=== PATIENT | female | born 1990 | race African-American/Black ===

== ENCOUNTER 2019-01-22 16:54 | Emergency (ER) | payer OTHER ==
--- NOTE | 2019-01-22 17:11 | PDOC ---
Rapid Medical Evaluation Chief Complaint: Pain Time Seen by Provider: 01/22/19 17:09 Medical Evaluation: Allergies Allergy/AdvReac Type Severity Reaction Status Date / Time ibuprofen Allergy Severe Verified 07/21/13 23:17 01/22/19 17:10 I did a brief in person evaluation on this patient. CC: abdominal pain HPI: Pt has a hx of PCOX and has lower abd pain. LMP unknown. Pt has no hx of abd surgeries. PE: Skin: Clear Lungs: Clear Heart:RRR Abd: soft, non tender MS: Moves all extremities without difficulty Neuro: alert Psych: appropriate affect. I have ordered: abd protocol Pt will proceed to main ED for further evaluation. Discharge Disposition - Diagnosis Abdominal pain Qualifiers: Abdominal location: lower abdomen, unspecified Qualified Code(s): R10.30 - Lower abdominal pain, unspecified - Referrals - Patient Instructions - Post Discharge Activity
[2019-01-22 17:13] VITALS: BMI 29.2
[2019-01-22 18:06] LABS: BASO % 0.2 % (0-2.0); EOS % 1.6 % (0-4.5); HEMATOCRIT 42.3 % (32.4-45.2); HEMOGLOBIN 14.1 GM/dL (10.7-15.3); LYMPH % 36.8 % (8-40); MCHC 33.4 g/dl (32.0-36.0); MEAN CELL VOLUME 89.7 fl (80-96); MEAN PLT VOLUME 8.5 fl (7.5-11.1); MONO % 6.6 % (3.8-10.2); NEUT % 54.8 % (42.8-82.8); PLATELET COUNT 298 K/MM3 (134-434); RBC 4.71 M/mm3 (3.60-5.2); RDW 13.5 % (11.6-15.6); WHITE BLOOD COUNT 5.6 K/mm3 (4.0-10.0)
[2019-01-22 18:32] LABS: ALBUMIN 2.8 g/dl (3.4-5.0); ALK PHOS 50 U/L (45-117); ANION GAP 6 MMOL/L (8-16); BILIRUBIN,TOTAL < 0.1 mg/dL (0.2-1); BLOOD UREA NITROGEN 15 mg/dL (7-18); CHLORIDE 107 mmol/L (98-107); CO2 25 mmol/L (21-32); CREATININE 0.9 mg/dL (0.55-1.3); GLUCOSE,RANDOM 94 mg/dL (74-106); LIPASE 196 U/L (73-393); POTASSIUM 4.6 mmol/L (3.5-5.1); SGOT/AST 9 U/L (15-37); SGPT/ALT 16 U/L (13-61); SODIUM 138 mmol/L (136-145); TOT PROT 7.1 g/dl (6.4-8.2)
[2019-01-22 18:33] LABS: EPI CELLS 2.4 /HPF (0-5/HPF); URINE APPEARANCE CLEAR; URINE BACTERIA 80.9 /hpf (NEGATIVE); URINE BILIRUBIN NEGATIVE (NEGATIVE); URINE CASTS 2 /lpf (0-8); URINE COLOR YELLOW; URINE GLUCOSE (UA) NEGATIVE (NEGATIVE); URINE KETONE NEGATIVE (NEGATIVE); URINE LEUK ESTERASE NEGATIVE (NEGATIVE); URINE NITRITE NEGATIVE (NEGATIVE); URINE PROTEIN 3+ (NEGATIVE); URINE RBC 1 /hpf (0-4); URINE UROBILINOGEN 0.2 mg/dL (0.2-1.0); URINE WBC 4 /hpf (0-5)
--- NOTE | 2019-01-22 20:03 | PDOC ---
History of Present Illness - General Chief Complaint: Pain Stated Complaint: PELVIC PAIN Time Seen by Provider: 01/22/19 17:09 History Source: Patient - History of Present Illness Initial Comments: 01/22/19 19:57 28 year old female with history of PCOS c/o b/l pelvic painx 2 days. denies vaginal bleeding, discharge. denies no new partner or exposure to STI. denies urinary symptoms. 01/22/19 20:00 Past History - Past Medical History Allergies/Adverse Reactions: Allergies Allergy/AdvReac Type Severity Reaction Status Date / Time ibuprofen Allergy Severe Verified 07/21/13 23:17 Home Medications: Ambulatory Orders Norethindrone-E.estradiol-Iron [Lo Loestrin Fe 1-10 Tablet] 1 each PO DAILY Albuterol Sulfate Inhaler - [Ventolin HFA Inhaler -] 1 - 2 inh IH Q4H #1 inhaler 07/22/13 traMADol HCL [Ultram -] 50 mg PO BID PRN #7 tablet MDD 2 01/22/19 Asthma: Yes (MILD, NEVER ON MEDS) COPD: No - Immunization History Immunization Up to Date: No - Suicide/Smoking/Psychosocial Hx Smoking Status: No Smoking History: Never smoked Have you smoked in the past 12 months: No Number of Cigarettes Smoked Daily: 0 Information on smoking cessation initiated: No Hx Alcohol Use: No Drug/Substance Use Hx: No Review of Systems - Review of Systems Able to Perform ROS?: Yes Is the patient limited Turkish proficient: No Constitutional: No: Symptoms Reported, See HPI, Chills, Diaphoresis, Fever, Loss of Appetite, Malaise, Night Sweats, Weakness, Weight Stable, Unintentional Wgt. Loss, Unexplained wgt Loss, Other ABD/GI: No: Symptoms Reported, See HPI, Abdominal Distended, Abd. Pain w/ defecation, Blood Streaked Bowels, Constipated, Diarrhea, Difficulty Swallowing , Nausea, Poor Appetite, Poor Fluid Intake, Rectal Bleeding, Vomiting, Indigestion, Abdominal cramping, Tarry Stools, Other : Yes: Other (pelvic pain). No: Symptoms Reported, See HPI, Burning, Dysuria , Discharge, Frequency, Flank Pain, Hematuria, Incontinence, Pain, Urgency, Testicular Mass, Testicular Swelling, Lesions, Testicular Pain *Physical Exam - Vital Signs Last Vital Signs Temp Pulse Resp BP Pulse Ox 98.4 F 98 H 18 130/92 98 01/22/19 17:11 01/22/19 17:11 01/22/19 17:11 01/22/19 17:11 01/22/19 17:11 - Physical Exam General Appearance: Yes: Appropriately Dressed Respiratory/Chest: positive: Lungs Clear, Normal Breath Sounds Cardiovascular: positive: Regular Rhythm, Regular Rate Female Pelvic Exam: positive: normal external exam, cervical os closed, adnexal tenderness (b/l), other (white vaginal discharge) Gastrointestinal/Abdominal: positive: Normal Bowel Sounds, Soft. negative: Tender Extremity: positive: Normal Capillary Refill, Normal Inspection, Normal Range of Motion Integumentary: positive: Normal Color, Dry, Warm ED Treatment Course - LABORATORY CBC & Chemistry Diagram: 01/22/19 17:48 01/22/19 17:48 - ADDITIONAL ORDERS Additional order review: Laboratory Results 01/22/19 01/22/19 01/22/19 17:48 17:40 17:40 Sodium 138 Potassium 4.6 Chloride 107 Carbon Dioxide 25 Anion Gap 6 L BUN 15 Creatinine 0.9 Creat Clearance w eGFR 74.03 Random Glucose 94 Calcium 9.0 Total Bilirubin < 0.1 L AST 9 L ALT 16 Alkaline Phosphatase 50 Total Protein 7.1 Albumin 2.8 L Lipase 196 Urine Color Yellow Urine Appearance Clear Urine pH 7.0 Ur Specific [place] 1.015 Urine Protein 3+ H Urine Glucose (UA) Negative Urine Ketones Negative Urine Blood Negative Urine Nitrite Negative Urine Bilirubin Negative Urine Urobilinogen 0.2 Ur Leukocyte Esterase Negative Urine WBC (Auto) 4 Urine RBC (Auto) 1 Urine Casts (Auto) 2 U Epithel Cells (Auto) 2.4 Urine Bacteria (Auto) 80.9 Urine HCG, Qual Negative 01/22/19 17:48 RBC 4.71 MCV 89.7 MCHC 33.4 RDW 13.5 MPV 8.5 Neutrophils % 54.8 Lymphocytes % 36.8 D Monocytes % 6.6 Eosinophils % 1.6 Basophils % 0.2 - RADIOLOGY Radiology Studies Ordered: Category Date Time Status TRANSVAGINAL ULTRASOUND US [US] Stat Ultrasound 01/22/19 19:57 Ordered Progress Note - Progress Note Progress Note: A: Pelvic Pain P: labs UA TVUS *DC/Admit/Observation/Transfer Diagnosis at time of Disposition: Abdominal pain Qualifiers: Abdominal location: lower abdomen, unspecified Qualified Code(s): R10.30 - Lower abdominal pain, unspecified - Discharge Dispostion Disposition: HOME Condition at time of disposition: Stable - Prescriptions Prescriptions: traMADol HCL [Ultram -] 50 mg PO BID PRN #7 tablet MDD 2 PRN Reason: Pain - Referrals Referrals: Sofia Fofana MD [Primary Care Provider] - Call tomorrow - Patient Instructions Printed Discharge Instructions: DI for Pelvic Pain Additional Instructions: please follow up with your doctor as soon as possible. you may take tylenol every 6 hours as needed for pain apply warm / heat pack to the area follow up with a gas plumber - Post Discharge Activity Forms/Work/School Notes: Back to Work
--- NOTE | 2019-01-22 20:04 | PDOC ---
*Physical Exam - Vital Signs Last Vital Signs Temp Pulse Resp BP Pulse Ox 98.4 F 98 H 18 130/92 98 01/22/19 17:11 01/22/19 17:11 01/22/19 17:11 01/22/19 17:11 01/22/19 17:11 ED Treatment Course - LABORATORY CBC & Chemistry Diagram: 01/22/19 17:48 01/22/19 17:48 - ADDITIONAL ORDERS Additional order review: Laboratory Results 01/22/19 01/22/19 01/22/19 17:48 17:40 17:40 Sodium 138 Potassium 4.6 Chloride 107 Carbon Dioxide 25 Anion Gap 6 L BUN 15 Creatinine 0.9 Creat Clearance w eGFR 74.03 Random Glucose 94 Calcium 9.0 Total Bilirubin < 0.1 L AST 9 L ALT 16 Alkaline Phosphatase 50 Total Protein 7.1 Albumin 2.8 L Lipase 196 Urine Color Yellow Urine Appearance Clear Urine pH 7.0 Ur Specific [place] 1.015 Urine Protein 3+ H Urine Glucose (UA) Negative Urine Ketones Negative Urine Blood Negative Urine Nitrite Negative Urine Bilirubin Negative Urine Urobilinogen 0.2 Ur Leukocyte Esterase Negative Urine WBC (Auto) 4 Urine RBC (Auto) 1 Urine Casts (Auto) 2 U Epithel Cells (Auto) 2.4 Urine Bacteria (Auto) 80.9 Urine HCG, Qual Negative 01/22/19 17:48 RBC 4.71 MCV 89.7 MCHC 33.4 RDW 13.5 MPV 8.5 Neutrophils % 54.8 Lymphocytes % 36.8 D Monocytes % 6.6 Eosinophils % 1.6 Basophils % 0.2 Medical Decision Making - Medical Decision Making 01/22/19 20:04 Patient seen by the advanced practice provider under my direct supervision. Ancillary testing reviewed as necessary. I agree with plan as outlined by the advanced practice provider. *DC/Admit/Observation/Transfer Diagnosis at time of Disposition: Abdominal pain Qualifiers: Abdominal location: lower abdomen, unspecified Qualified Code(s): R10.30 - Lower abdominal pain, unspecified - Discharge Dispostion Disposition: HOME Condition at time of disposition: Stable - Prescriptions Prescriptions: traMADol HCL [Ultram -] 50 mg PO BID PRN #7 tablet MDD 2 PRN Reason: Pain - Referrals Referrals: Sofia Fofana MD [Primary Care Provider] - Call tomorrow - Patient Instructions Printed Discharge Instructions: DI for Pelvic Pain Additional Instructions: please follow up with your doctor as soon as possible. you may take tylenol every 6 hours as needed for pain apply warm / heat pack to the area follow up with a manager room - Post Discharge Activity Forms/Work/School Notes: Back to Work
[2019-01-22 22:23] VITALS: BP 122/85; PULSE 92; TEMP 98.1
== END 2019-01-22 21:55 | disposition home or self-care (01) ==
LOC: JER 16:54
DX: R10.2 Pelvic and perineal pain (principal); E28.2 Polycystic ovarian syndrome
CPT/HCPCS: 36415; 76830-TC; 80053; 81003; 83690; 84703; 85025; 99283-25

== ENCOUNTER 2019-10-27 21:18 | Emergency (ER) | payer OTHER ==
[2019-10-27 21:37] VITALS: BMI 31.2
[2019-10-27] MEDS ORDERED: predniSONE 20 MG TABLET (UD) PO ONE (22:32)
[2019-10-27] MEDS ORDERED: ACETAMINOPHEN 325 MG TABLET (FP) PO ONE (22:32)
[2019-10-27] MEDS ORDERED: predniSONE 20 MG TABLET (UD) ONE (22:39)
[2019-10-27] MEDS ORDERED: ALBUTEROL SO4 2.5/IPRATROPIUM 0.5 INH SOL 3 ML VIAL.NEB. NEB ONE (22:39)
[2019-10-27] MEDS ORDERED: ACETAMINOPHEN 325 MG TABLET (FP) ONE (22:39)
[2019-10-27] MEDS: ALBUTEROL SO4 2.5/IPRATROPIUM 0.5 INH SOL 3 ML VIAL.NEB. NEB SCH ×3 (22:40→23:03)
--- NOTE | 2019-10-27 23:02 | PDOC ---
History of Present Illness - General Chief Complaint: Cold Symptoms Stated Complaint: FLU SYX Time Seen by Provider: 10/27/19 22:01 History Source: Patient - History of Present Illness Timing/Duration: reports: yesterday Associated Symptoms: reports: cough, fever/chills Past History - Past Medical History Allergies/Adverse Reactions: Allergies Allergy/AdvReac Type Severity Reaction Status Date / Time ibuprofen Allergy Severe Verified 07/21/13 23:17 NSAIDS (Non-Steroidal Allergy Verified 10/27/19 21:33 Anti-Inflamma Home Medications: Ambulatory Orders Norethindrone-E.estradiol-Iron [Lo Loestrin Fe 1-10 Tablet] 1 each PO DAILY Albuterol Sulfate Inhaler - [Ventolin HFA Inhaler -] 1 - 2 inh IH Q4H #1 inhaler 07/22/13 traMADol HCL [Ultram -] 50 mg PO BID PRN #7 tablet MDD 2 01/22/19 Oseltamivir Phosphate [Tamiflu] 75 mg PO BID #10 capsule 10/27/19 predniSONE [Deltasone -] 40 mg PO DAILY #8 tablet 10/27/19 Asthma: Yes (MILD, NEVER ON MEDS) COPD: No - Immunization History Immunization Up to Date: No - Psycho Social/Smoking Cessation Hx Smoking Status: No Smoking History: Never smoked Have you smoked in the past 12 months: No Number of Cigarettes Smoked Daily: 0 Hx Alcohol Use: Yes ("occasional") Drug/Substance Use Hx: No Review of Systems - Review of Systems Constitutional: Yes: Chills, Fever, Malaise Respiratory: Yes: Cough, Shortness of Breath, Wheezing *Physical Exam - Vital Signs Last Vital Signs Temp Pulse Resp BP Pulse Ox 102.8 F H 125 H 20 128/77 98 10/27/19 21:33 10/27/19 21:33 10/27/19 21:33 10/27/19 21:33 10/27/19 21:33 - Physical Exam General Appearance: Yes: Appropriately Dressed, Mild Distress HEENT: positive: Normal ENT Inspection, Normal Voice, TMs Normal, Pharynx Normal. negative: Scleral Icterus (R), Scleral Icterus (L) Neck: positive: Supple Respiratory/Chest: positive: Lungs Clear, Normal Breath Sounds. negative: Respiratory Distress, Wheezing Cardiovascular: positive: S1, S2, Tachycardia Integumentary: positive: Dry, Warm Neurologic: positive: Fully Oriented, Alert, Normal Mood/Affect ED Treatment Course - Medications Given in the ED: ED Medications Discontinued Medications Generic Name Dose Route Start Last Admin Trade Name Landy PRN Reason Stop Dose Admin Acetaminophen 650 mg 10/27/19 22:32 10/27/19 22:40 Tylenol - PO 10/27/19 22:33 650 mg ONCE ONE Administration Prednisone 60 mg 10/27/19 22:32 10/27/19 22:40 Deltasone - PO 10/27/19 22:33 60 mg ONCE ONE Administration Medical Decision Making - Medical Decision Making 10/27/19 22:45 28-year-old female history of asthma, no intubations or admissions here with body aches with fever of 102. States at some point she began coughing with shortness of breath and wheezing, consistent with her asthma. Has been using a rescue inhaler with no improvement. see exam Influenza Rpt vitals improved w/ meds -dc w/ tamiflu and supportive treatment -Contact precautions given Asthma exacerbation -Improved with nebs -DC with Pred burst Discharge - Discharge Information Problems reviewed: Yes Clinical Impression/Diagnosis: Influenza A Asthma exacerbation Qualifiers: Asthma severity: mild Asthma persistence: unspecified Qualified Code(s): J45.901 - Unspecified asthma with (acute) exacerbation Condition: Improved Disposition: HOME - Additional Discharge Information Prescriptions: Oseltamivir Phosphate [Tamiflu] 75 mg PO BID #10 capsule predniSONE [Deltasone -] 40 mg PO DAILY #8 tablet - Follow up/Referral Referrals: Sofia Fofana MD [Primary Care Provider] - - Patient Discharge Instructions Patient Printed Discharge Instructions: Influenza Additional Instructions: Continue taking prednisone as directed for your asthma You have the flu. Take Tamiflu as directed and take Tylenol every 6 hours as needed for pain and/or fever Return to ER for worsening of symptoms - Post Discharge Activity Work/Back to School Note: Back to Work
[2019-10-28 00:14] VITALS: BP 125/82; PULSE 120; TEMP 100.8
== END 2019-10-27 23:30 | disposition home or self-care (01) ==
LOC: JER 21:18
DX: J45.901 Unspecified asthma with (acute) exacerbation (principal); J09.X2 Influenza due to identified novel influenza A virus with other respiratory manifestations
CPT/HCPCS: 87804; 99282-25

== ENCOUNTER 2020-04-14 15:44 | Emergency (ER) | payer OTHER ==
--- NOTE | 2020-04-14 16:00 | PDOC ---
Rapid Medical Evaluation Chief Complaint: Pain, Acute Time Seen by Provider: 04/14/20 15:55 Medical Evaluation: Allergies Allergy/AdvReac Type Severity Reaction Status Date / Time ibuprofen Allergy Severe Verified 07/21/13 23:17 NSAIDS (Non-Steroidal Allergy Verified 10/27/19 21:33 Anti-Inflamma 04/14/20 15:57 CC: left calf pain since last night, no swelling, no skin discoloration, no crepitus upon movement on OCP, no hx of dvt/PE, no SOB Exam: calf tenderness, + homans Plan: duplex Discharge Disposition - Diagnosis Pain of left calf - Referrals - Patient Instructions - Post Discharge Activity
[2020-04-14 16:02] VITALS: BP 120/45; PULSE 95; TEMP 98.8; BMI 34.3
[2020-04-14] MEDS ORDERED: ACETAMINOPHEN 1000 MG/100 ML VIAL (NON FORMULARY) IVPB ONE (17:24)
[2020-04-14] MEDS ORDERED: ACETAMINOPHEN INJECTION 100 ML IVPB ONE (17:31)
[2020-04-14 17:38] LABS: BASO % 0.5 % (0-2.0); EOS % 4.2 % (0-4.5); HEMATOCRIT 39.9 % (32.4-45.2); LYMPH % 30.9 % (8-40); MCH 29.4 pg (25.7-33.7); MCHC 32.7 g/dl (32.0-36.0); MEAN CELL VOLUME 89.8 fl (80-96); MEAN PLT VOLUME 8.3 fl (7.5-11.1); MONO % 6.2 % (3.8-10.2); NEUT % 58.2 % (42.8-82.8); PLATELET COUNT 302 K/MM3 (134-434); RBC 4.44 M/mm3 (3.60-5.2); RDW 14.3 % (11.6-15.6); WHITE BLOOD COUNT 5.9 K/mm3 (4.0-10.0)
[2020-04-14 17:57] LABS: ALBUMIN 3.1 g/dl (3.4-5.0); BILIRUBIN,TOTAL 0.4 mg/dL (0.2-1); BLOOD UREA NITROGEN 7.8 mg/dL (7-18); CALCIUM 8.7 mg/dL (8.5-10.1); CREATININE 0.9 mg/dL (0.55-1.3); POTASSIUM 4.8 mmol/L (3.5-5.1); TOT PROT 7.5 g/dl (6.4-8.2)
[2020-04-14] MEDS ORDERED: CYCLOBENZAPRINE HCL 10 MG TABLET (FP) ONE (19:04)
[2020-04-14] MEDS ORDERED: CYCLOBENZAPRINE HCL 5 MG TABLET PO ONE (19:11)
--- NOTE | 2020-04-14 19:30 | PDOC ---
History of Present Illness - General Chief Complaint: Pain, Acute Stated Complaint: LT LEG PAIN Time Seen by Provider: 04/14/20 15:55 - History of Present Illness Initial Comments: 04/14/20 19:27 29-year-old Female with multiple comorbidities. Nephrotic syndromeasthma unable to take anti-inflammatories presents for evaluation of 1 day of atraumatic left calf pain. No systemic symptoms no shortness of breath fever chills or night sweats. Past History - Medical History Allergies/Adverse Reactions: Allergies Allergy/AdvReac Type Severity Reaction Status Date / Time ibuprofen Allergy Severe Verified 04/14/20 16:02 NSAIDS (Non-Steroidal Allergy Verified 04/14/20 16:02 Anti-Inflamma Home Medications: Ambulatory Orders Norethindrone-E.estradiol-Iron [Lo Loestrin Fe 1-10 Tablet] 1 each PO DAILY 07/21/13 Albuterol Sulfate Inhaler - [Ventolin HFA Inhaler -] 1 - 2 inh IH Q4H #1 inhaler 07/22/13 traMADol HCL [Ultram -] 50 mg PO BID PRN #7 tablet MDD 2 01/22/19 Oseltamivir Phosphate [Tamiflu] 75 mg PO BID #10 capsule 10/27/19 predniSONE [Deltasone -] 40 mg PO DAILY #8 tablet 10/27/19 Asthma: Yes (MILD, NEVER ON MEDS) COPD: No GI Disorders: Yes (pcos, endometriosis) Disorders: Yes (neprotic syndrome) - Immunization History Immunization Up to Date: No - Psycho-Social/Smoking History Smoking Status: No Smoking History: Never smoked Have you smoked in the past 12 months: No Number of Cigarettes Smoked Daily: 0 - Substance Abuse Hx (Audit-C & DAST Scrn) How often the patient has a drink containing alcohol: Never How often the patient has six or more drinks on one occasion: Never Score: In Men: 4 or > Positive; In Women: 3 or > Positive: 0 Screen Result (Pos requires Nsg. Audit-10AR): Negative Review of Systems - Review of Systems Constitutional: No: Fever Musculoskeletal: Yes: Back Pain *Physical Exam - Vital Signs Last Vital Signs Temp Pulse Resp BP Pulse Ox 98.8 F 95 H 16 120/45 L 100 04/14/20 15:50 04/14/20 15:50 04/14/20 15:50 04/14/20 15:50 04/14/20 15:50 - Physical Exam 04/14/20 19:28 GENERAL: The patient is awake, alert, and fully oriented, in no acute distress. HEAD: Normal with no signs of trauma. EYES: sclera anicteric, conjunctiva clear. ENT: Ears normal tympanic membranes normal oropharynx clear uvula midline NECK: Normal range of motion LUNGS: Breath sounds equal, clear to auscultation bilaterally. No wheezes, and no crackles. HEART: S1 and S2 without murmur, rub or gallop. ABDOMEN: Soft, nontender, normoactive bowel sounds. No guarding, no rebound. No masses. EXTREMITIES: Normal range of motion, no edema. No clubbing or cyanosis. No cords, erythema, or tenderness. NEUROLOGICAL: Cranial nerves II through XII grossly intact. PSYCH: Normal mood, normal affect. SKIN: Warm, Dry, normal turgor, no rashes or lesions noted. Lumbar spine skin color temperature normal range of motion is slightly decreased. No midline tenderness. Moderate bilateral paralumbar musculature spasm and tenderness 5 out of 5 strength bilateral lower extremities without gross sensorimotor deficits thighs and calves are soft and nontender neurovascular intact ED Treatment Course - LABORATORY CBC & Chemistry Diagram: 04/14/20 17:26 04/14/20 17:26 - ADDITIONAL ORDERS Additional order review: Laboratory Results 04/14/20 04/14/20 17:26 17:26 Sodium 140 Potassium 4.8 Chloride 114 H Carbon Dioxide 20 L Anion Gap 7 L BUN 7.8 Creatinine 0.9 Est GFR (CKD-EPI)AfAm 99.44 Est GFR (CKD-EPI)NonAf 85.80 Random Glucose 109 H Calcium 8.7 Total Bilirubin 0.4 AST 28 ALT 18 Alkaline Phosphatase 73 Total Protein 7.5 Albumin 3.1 L Serum , Qual Negative 04/14/20 17:26 RBC 4.44 MCV 89.8 MCHC 32.7 RDW 14.3 MPV 8.3 Neutrophils % 58.2 Lymphocytes % 30.9 Monocytes % 6.2 Eosinophils % 4.2 D Basophils % 0.5 - RADIOLOGY Radiology Studies Ordered: Category Date Time Status SPINE-LUMBAR ONLY [RAD] Stat Radiology 04/14/20 17:59 Completed - Medications Given in the ED: ED Medications Discontinued Medications Generic Name Dose Route Start Last Admin Trade Name Freq PRN Reason Stop Dose Admin Acetaminophen 1,000 mg 04/14/20 17:24 04/14/20 17:30 Ofirmev Injection - IVPB 04/14/20 17:25 1,000 mg ONCE ONE Administration Cyclobenzaprine HCl 10 mg 04/14/20 19:11 04/14/20 19:14 Cyclobenzaprine Hcl PO 04/14/20 19:12 10 mg ONCE ONE Administration Medical Decision Making - Medical Decision Making 04/14/20 19:28 Mild relief after Ofirmev IV and Flexeril. Patient was reexamined radicular symptoms produced with straight leg raise test. No saddle paresthesias incontinence or gross sensorimotor deficits okay to discharge home follow-up with neurosurgery. I have reviewed the pathophysiology with the patient. They are in agreement with the treatment plan all questions were answered to their satisfaction. Understanding for follow-up without fail was also conveyed to the patient. Again they are in agreement. Discharge - Discharge Information Problems reviewed: Yes Clinical Impression/Diagnosis: Pain of left calf, Lumbar radiculopathy Condition: Improved - Admission No - Follow up/Referral Referrals: Sofia Fofana MD [Primary Care Provider] - Henry Britt MD, FAANS [Staff Physician] - - Patient Discharge Instructions Additional Instructions: Tylenol as directed for pain and without fail follow-up with neurosurgery in 1 to 2 days for further evaluation and treatment options. - Post Discharge Activity
[2020-04-15] MEDS ORDERED: CYCLOBENZAPRINE HCL 5 MG TABLET PO ONE (18:42)
== END 2020-04-14 20:08 | disposition home or self-care (01) ==
LOC: JER 15:44
PROC: 3E033GC Introduction of Other Therapeutic Substance into Peripheral Vein, Percutaneous Approach (ICD-10-PCS; principal; 2020-04-14)
DX: M79.662 Pain in left lower leg (principal); M54.16 Radiculopathy, lumbar region
CPT/HCPCS: 36415; 72100-TC-FY; 80053; 84703; 85025; 93971-TC; 96374; 99284-25; J0131

== ENCOUNTER 2021-07-28 20:58 | Emergency (ER) | payer OTHER ==
[2021-07-28 21:03] VITALS: BMI 32.1
[2021-07-28] MEDS ORDERED: ACETAMINOPHEN 1000 MG/100 ML VIAL IVPB ONE (21:48)
[2021-07-28] MEDS ORDERED: ONDANSETRON 4 MG/2 ML VIAL IVPUSH ONE (21:48)
[2021-07-28] MEDS ORDERED: ACETAMINOPHEN INJECTION 100 ML IVPB ONE (22:00)
[2021-07-28] MEDS ORDERED: ONDANSETRON 4 MG/2 ML VIAL ONE (22:00)
[2021-07-28 22:48] LABS: HEMATOCRIT 39.9 % (32.4-45.2); HEMOGLOBIN 13.3 GM/dL (10.7-15.3); LYMPH % 32.5 % (8-40); MCH 29.3 pg (25.7-33.7); MCHC 33.3 g/dl (32.0-36.0); MEAN PLT VOLUME 7.8 fl (7.5-11.1); MONO % 4.9 % (3.8-10.2); NEUT % 60.6 % (42.8-82.8); PLATELET COUNT 317 10^3/uL (134-434); RBC 4.53 M/mm3 (3.60-5.2); RDW 14.3 % (11.6-15.6); WHITE BLOOD COUNT 8.6 K/mm3 (4.0-10.0)
[2021-07-28 22:53] LABS: EPI CELLS 6 /uL (0-25.1); HYALINE CASTS 1 /uL (0-3.1); PH,URINE 6.5 (5.0-8.0); URINE APPEARANCE CLEAR; URINE BACTERIA 8 /uL (0-1359); URINE BILIRUBIN NEGATIVE (NEGATIVE); URINE COLOR YELLOW; URINE GLUCOSE (UA) NEGATIVE (NEGATIVE); URINE KETONE NEGATIVE (NEGATIVE); URINE LEUK ESTERASE TRACE (NEGATIVE); URINE NITRITE NEGATIVE (NEGATIVE); URINE PROTEIN 2+ (NEGATIVE); URINE RBC 6 /uL (0-23.9); URINE UROBILINOGEN 0.2 mg/dL (0.2-1.0); URINE WBC 53 /uL (0-25.8)
[2021-07-28 23:11] LABS: CALCIUM 8.7 mg/dL (8.5-10.1)
[2021-07-28 23:12] LABS: ALBUMIN 3.3 g/dl (3.4-5.0); BLOOD UREA NITROGEN 10.8 mg/dL (7-18)
[2021-07-28 23:15] LABS: CREATININE 0.9 mg/dL (0.55-1.3)
[2021-07-28 23:16] LABS: BILIRUBIN,TOTAL 0.3 mg/dL (0.2-1)
[2021-07-28 23:17] LABS: TOT PROT 7.6 g/dl (6.4-8.2)
[2021-07-29 00:36] VITALS: BP 114/81; PULSE 89; TEMP 99.1
== END 2021-07-29 03:12 | disposition home or self-care (01) ==
LOC: JER 20:58
PROC: 3E033NZ Introduction of Analgesics, Hypnotics, Sedatives into Peripheral Vein, Percutaneous Approach (ICD-10-PCS; principal; 2021-07-28)
PROC: 3E033GC Introduction of Other Therapeutic Substance into Peripheral Vein, Percutaneous Approach (ICD-10-PCS; 2021-07-28)
DX: R10.30 Lower abdominal pain, unspecified (principal)
CPT/HCPCS: 36415; 74177-TC; 80053; 81003; 84703; 85025; 87077; 87086; 87491; 87591; 99285-25; J0131